=== PATIENT | female | born 1950 | race Caucasian/White ===

== ENCOUNTER 2018-12-08 10:56 | Emergency (ER) | payer MEDICARE ==
[~2018-12-08] VITALS: Ht 165.1 cm; Wt 92.9 kg
[~2018-12-08 10:56] MED LIST: ACET325T14 PO; ASPI81TA45 PO; ATOR-2 PO; CALC0.5C9 PO; DARB100V SQ; DOXY20TA5 PO; ERGO500017 PO; FURO80TA3 PO; HYDR-3240 PO; METO25TA35 PO/NG; NO HOME MEDS; ONDA4TAB7 PO; SULF1TAB24 PO
[2018-12-08 11:09] VITALS: BP 108/64
--- NOTE | 2018-12-08 12:06 | NUR ---
AMBULATORY FROM LOBBY TO ROOM WITH WALKER.
--- NOTE | 2018-12-08 13:06 | NUR ---
PRESSURE DSG WITH GAUZE AND TEGADERM APPLIED. PT INSTRUCTED IN REAPPLICATION AND TO RETURN SOONER IF GAUZE BECOMES SOAKED THRU.
== END 2018-12-08 13:08 | disposition home or self-care (01) ==
LOC: ED 11:56
DX: M79.81 Nontraumatic hematoma of soft tissue (principal); D68.32 Hemorrhagic disorder due to extrinsic circulating anticoagulants; I10 Essential (primary) hypertension
CPT/HCPCS: 99284

== ENCOUNTER 2019-02-15 09:39 | Day surgery (SDC) | payer MEDICARE ==
[~2019-02-15] VITALS: Ht 162.6 cm; Wt 96.9 kg
[2019-02-15 10:24] VITALS: BP 94/58
[2019-02-15] MEDS ORDERED: PROPOFOL 10 MG/ML, 20ML ONE (10:28)
[2019-02-15] MEDS ORDERED: ONDANSETRON 2MG/ML, 2ML ONE (10:28)
[2019-02-15] MEDS ORDERED: SUCCINYLCHOLINE 20 MG/ML, 10ML ONE (10:28)
[2019-02-15] MEDS ORDERED: CEFAZOLIN 1,000 MG ONE (10:28)
[2019-02-15] MEDS ORDERED: ATOR80TA PO (10:31)
[2019-02-15] MEDS ORDERED: ASPI-496 PO (10:31)
[2019-02-15] MEDS ORDERED: CINA90TA PO (10:31)
[2019-02-15] MEDS ORDERED: FURO80TA3 PO (10:31)
[2019-02-15] MEDS ORDERED: CALC0.5C9 PO (10:31)
[2019-02-15] MEDS ORDERED: ERGO500017 PO (10:33)
[2019-02-15] MEDS ORDERED: HEPARIN 1,000 UNITS/ML, 10ML ONE (11:37)
[2019-02-15] MEDS ORDERED: MIDAZOLAM 1 MG/ML, 2ML ONE (12:35)
[2019-02-15] MEDS ORDERED: FENTANYL PF 100 MCG/2ML ONE ×2 (12:42→13:34)
[2019-02-15] MEDS ORDERED: FENTANYL PF 100 MCG/2ML IV PRN (13:30)
[2019-02-15] MEDS ORDERED: PROMETHAZINE 25 MG/ML, 1ML IV PRN (13:30)
[2019-02-15] MEDS ORDERED: LABETALOL 5MG/ML, 20ML IV PRN (13:30)
[2019-02-15] MEDS ORDERED: MEPERIDINE/PF 25MG/0.5ML IVPush PRN (13:30)
[2019-02-15] MEDS ORDERED: hydrALAzine 20 MG/ML, 1ML IV PRN (13:30)
[2019-02-15] MEDS ORDERED: OXYcodone 5 MG/5 ML ORAL.SOL UDC PO PRN (13:30)
[2019-02-15] MEDS ORDERED: ONDANSETRON 2MG/ML, 2ML IVPush PRN (13:30)
[2019-02-15] MEDS ORDERED: METOCLOPRAMIDE 5 MG/ML, 2ML IV PRN (13:30)
[2019-02-15] MEDS ORDERED: KETOROLAC 30 MG/1 ML IV PRN (13:30)
[2019-02-15] MEDS ORDERED: HYDROmorphone 1 MG/ML, 1ML AMP IV PRN (13:30)
[2019-02-15] MEDS ORDERED: ALBUTEROL SULFATE 2.5 MG/3 ML NPPB PRN (13:30)
[2019-02-15] MEDS ORDERED: OXYcodone 5 MG/5 ML ORAL.SOL UDC ONE (13:34)
== END 2019-02-15 16:00 | disposition home or self-care (01) ==
LOC: OUT 09:39
PROVIDERS: ATTEND Surgery Vascular Surgery
DX: N19 Unspecified kidney failure (principal); I25.10 Atherosclerotic heart disease of native coronary artery without angina pectoris; Z95.1 Presence of aortocoronary bypass graft
CPT/HCPCS: 36415; 36821; 80047; 93005; J0330; J0690; J1644; J2250; J2405; J2704; J3010

== ENCOUNTER 2019-05-15 13:30 | Emergency (ER) | payer MEDICARE ==
[~2019-05-15] VITALS: Ht 162.6 cm; Wt 99.0 kg
[~2019-05-15 13:30] MED LIST changes: +ASPI-496 PO; +ATOR80TA PO; +CINA90TA PO
[2019-05-15] MEDS ORDERED: SODIUM CHLORIDE FLUSH 10ML SYR IVF ONE (14:00)
[2019-05-15] MEDS ORDERED: ONDANSETRON 2MG/ML, 2ML IVPush ONE (14:00)
[2019-05-15] MEDS ORDERED: HYDROmorphone 2 MG/ML, 1ML IVPush PRN (14:00)
--- NOTE | 2019-05-15 14:03 | NUR ---
THIS IS A 68 Y/O FEMALE WITH LOWER LEFT ABD PAIN X 2 DAYS. PT ARRIVES TO THED ED NOT FEELING WELL AFTER DIALYSIS TODAY. PT REPORTS NORMAL FATIGUE BUT HER PAIN REMAINS CONSTANT. PT REPROTS NO OTHER ABNORMALITY AND OTHER THAN FATIGUE IS IN GOOD SPIRITS AND VERY PLEASANT. PT HAD PIV AND GIVEN BLANKET AND PILLOW FOR COMFORT. NO BP SIGN IN ROOM. PT HAS FISTUAL AND SMITH BROVIAC. PT CONNECTED TO ALL MONITORS AND CALL LIGHT IN REACH. AWAITING FURTHER ORDERS.
[2019-05-15 14:11] LABS: BASOPHILS # (AUTO) 0.02 x10^3/uL (0-0.1); BASOPHILS % (AUTO) 0 % (0-1); EOSINOPHILS # (AUTO) 0.09 x10^3/uL (0-0.4); EOSINOPHILS % (AUTO) 1 % (1-7); LYMPHOCYTES # (AUTO) 1.07 x10^3/uL (1-3.4); LYMPHOCYTES % (AUTO) 14 % (22-44); MD NO; MEAN CORPUSCULAR HEMOGLOBIN 32.3 pg (27.0-34.8); MEAN CORPUSCULAR HGB CONC 32.7 g/dL (32.4-35.8); MEAN CORPUSCULAR VOLUME 98.7 fL (80-100); MEAN PLATELET VOLUME 6.4 fL (7.4-10.4); MONOCYTES # (AUTO) 0.63 x10^3/uL (0.2-0.8); MONOCYTES % (AUTO) 8 % (2-9); NEUTROPHILS % (AUTO) 76 % (42-75); PLATELET COUNT 211 x10^3/uL (130-400); RED BLOOD COUNT 3.24 x10^6/uL (3.82-5.3); RED CELL DISTRIBUTION WIDTH 21.4 % (9.6-15.2)
[2019-05-15 14:16] LABS: ALANINE AMINOTRANSFERASE 17 U/L (12-78); ALBUMIN 3.5 g/dL (3.4-5.0); ANION GAP 8 mmol/L (5-15); CALCIUM 9.3 mg/dL (8.5-10.1); CHLORIDE 95 mmol/L (98-107)
--- NOTE | 2019-05-15 14:17 | NUR ---
PT AT THIS TIME DOES NOT WANT ANY MEDICATIONS FOR HER PAIN AT THIS TIME.
[2019-05-15 14:19] LABS: ALKALINE PHOSPHATASE 130 U/L (45-117); BILIRUBIN,TOTAL 0.9 mg/dL (0.2-1.0); CREATININE 3.97 mg/dL (0.55-1.02); TOTAL PROTEIN 8.7 g/dL (6.4-8.2)
[2019-05-15] MEDS ORDERED: OMNIPAQUE 350 MG/ML, 100ML BOTTLE ONE (14:52)
--- NOTE | 2019-05-15 14:58 | NUR ---
PT BACK FROM CT.
--- NOTE | 2019-05-15 15:31 | NUR ---
CHART UP FOR RECHECK, INFORMED OF CT FINDINGS.
[2019-05-15] MEDS ORDERED: LIDOCAINE-MPF 1%, 5ML ONE (15:35)
[2019-05-15] MEDS ORDERED: LIDOCAINE 2%, 20ML SQ ONE (16:00)
[2019-05-15] MEDS ORDERED: CEFTRIAXONE PMX 1GM/50ML 50 ML IVPB ONE (16:00)
[2019-05-15] MEDS ORDERED: CEFTRIAXONE PMX 1GM/50ML 50 ML ONE (16:20)
[2019-05-15 16:28] VITALS: BP 104/62
--- NOTE | 2019-05-15 16:29 | NUR ---
MD AT THIS TIME WOULD LIKE TO NOT GET BLOOD CULTURES PRIOR TO ABX TREATMENT.
--- NOTE | 2019-05-15 16:59 | NUR ---
PT HAD HEMATOMA IN LOWER LEFT ABD DRAINED, THEN PACKED WITH 1/4 INCH GAUZE. PT HAD GAUZE AND ABD PAD APPLIED AND GIVEN INSTURCTIOSN TO COME BACK IN TWO DAYS FOR REPACKING. PT VERBALIZED UNDERSTANDTING. PT WOUND CULTURE COLLECTED WELL.
--- NOTE | 2019-05-15 17:10 | NUR ---
Patient/Caregiver given discharge instructions and they have confirmed that they understand the instructions. Patient ambulatory with steady gait.
== END 2019-05-15 17:36 | disposition home or self-care (01) ==
LOC: ED 14:57
DX: L02.211 Cutaneous abscess of abdominal wall (principal); I10 Essential (primary) hypertension; N28.9 Disorder of kidney and ureter, unspecified; E66.9 Obesity, unspecified; Z68.37 Body mass index [BMI] 37.0-37.9, adult; Z98.890 Other specified postprocedural states
CPT/HCPCS: 10060; 36415; 74177; 80053; 83605; 83690; 85025; 87070; 87205; 99284; Q9967

== ENCOUNTER → 2020-03-21 | Outpatient (CLI) | payer MEDICARE | END | disposition home or self-care (01) | LOC: CFH 12:53 | PROVIDERS: ATTEND Nurse Practitioner | DX: N63.20 Unspecified lump in the left breast, unspecified quadrant (principal); R92.2 Inconclusive mammogram | CPT/HCPCS: 76642; 77066; G0279 ==

== ENCOUNTER → 2020-04-19 | Outpatient (CLI) | payer MEDICARE | END | disposition home or self-care (01) | LOC: CVU 12:34 | PROVIDERS: ATTEND Internal Medicine Cardiovascular Disease | DX: I08.8 Other rheumatic multiple valve diseases (principal); I65.23 Occlusion and stenosis of bilateral carotid arteries; I10 Essential (primary) hypertension | CPT/HCPCS: 93306; 93356; 93880 ==

== ENCOUNTER 2020-04-25 12:21 | Emergency (ER) | payer MEDICARE ==
[~2020-04-25] VITALS: Ht 162.6 cm; Wt 105.4 kg
[2020-04-25] MEDS ORDERED: IRON15TA3 PO (12:44)
--- NOTE | 2020-04-25 12:54 | NUR ---
BREAK RN: THIS IS A 69 YO FEMALE WHO PRESENTS TO THE ER C/O RUQ TO MID ABD PAIN STARTING THIS MORNING AND GETTING WORSE THROUGHOUT THE DAY. PT DENIES N/V/D. PT AO X 4. SKIN PWD. RESP EVEN AND UNLABORED. PT WAS AT DIALYSIS TODAY BUT LEFT [facility] THROUGH D/T PAIN. PT HAS DIALSYSIS //FRI AND IS COMPLIANT. LEFT UPPER ARM AV FISTULA NOTED WITH GOOD THRILL/BRUIT. PT ON CONT BP AND O2 MONITORS. PT AWARE WE ARE WAITING FOR ERMD EVAL. CALL LIGHT WITHIN REACH.
[2020-04-25] MEDS ORDERED: ONDANSETRON 2MG/ML, 2ML ONE (13:08)
[2020-04-25] MEDS ORDERED: MORPHINE SULFATE 4 MG/ML, 1ML ONE (13:08)
[2020-04-25] MEDS: MORPHINE SULFATE 4 MG/ML, 1ML IVPush PRN ×2 (13:11→14:36)
--- NOTE | 2020-04-25 13:12 | NUR ---
RECEIVED REPORT FROM LUKE LENZ. PIV INITIATED AND PT MEDICATED PER JAN.
[2020-04-25] MEDS ORDERED: SODIUM CHLORIDE FLUSH 10ML SYR IVF ONE (13:30)
[2020-04-25] MEDS ORDERED: ONDANSETRON 2MG/ML, 2ML IVPush ONE (13:30)
[2020-04-25 14:20] LABS: MEAN CORPUSCULAR HEMOGLOBIN 31.2 pg (27.0-34.8); MEAN CORPUSCULAR HGB CONC 32.9 g/dL (32.4-35.8); MEAN CORPUSCULAR VOLUME 94.7 fL (80-100); MEAN PLATELET VOLUME 6.1 fL (7.4-10.4); PLATELET COUNT 189 x10^3/uL (130-400); RED BLOOD COUNT 3.05 x10^6/uL (3.82-5.3); RED CELL DISTRIBUTION WIDTH 22.7 % (9.6-15.2)
--- NOTE | 2020-04-25 14:22 | NUR ---
PT RESTING ON GURNEY. NADN. JIMENEZ.
[2020-04-25 14:27] LABS: INTERNATIONAL NORMALIZED RATIO 0.98 (0.93-1.1); PROTHROMBIN TIME 10.4 Seconds (9.6-11.5)
[2020-04-25 14:28] LABS: ALBUMIN 3.1 g/dL (3.4-5.0); ANION GAP 10 mmol/L (5-15); CALCIUM 9.6 mg/dL (8.5-10.1); CHLORIDE 96 mmol/L (98-107)
[2020-04-25 14:32] LABS: ALANINE AMINOTRANSFERASE 20 U/L (12-78); ALKALINE PHOSPHATASE 95 U/L (45-117); BILIRUBIN,TOTAL 0.5 mg/dL (0.2-1.0); CREATININE 6.48 mg/dL (0.55-1.02); TOTAL PROTEIN 8.2 g/dL (6.4-8.2)
--- NOTE | 2020-04-25 14:54 | NUR ---
US AT BEDSIDE.
[2020-04-25 15:19] LABS: ANISOCYTOSIS 2+; BASOPHILS # (AUTO) 0.02 x10^3/uL (0-0.1); BASOPHILS % (AUTO) 0 % (0-1); EOSINOPHILS # (AUTO) 0.05 x10^3/uL (0-0.4); EOSINOPHILS % (AUTO) 1 % (1-7); LYMPHOCYTES # (AUTO) 0.68 x10^3/uL (1-3.4); LYMPHOCYTES % (AUTO) 10 % (22-44); MD MORPH REVIEW ONLY; MONOCYTES # (AUTO) 0.45 x10^3/uL (0.2-0.8); MONOCYTES % (AUTO) 7 % (2-9); NEUTROPHILS # (AUTO) 5.66 x10^3/uL (1.8-6.8); NEUTROPHILS % (AUTO) 83 % (42-75); POLYCHROMASIA 1+
[2020-04-25 15:20] LABS: <PLATELET ESTIMATE> ADEQUATE; <PLT MORPHOLOGY> NORMAL PLT MORPH; OVALOCYTES 1+
--- NOTE | 2020-04-25 15:26 | NUR ---
PT CHART REVIEWED AND PLACED FOR RECHECK.
[2020-04-25 16:20] VITALS: BP 117/43
== END 2020-04-25 16:39 | disposition home or self-care (01) ==
LOC: ED 13:20
DX: K80.20 Calculus of gallbladder without cholecystitis without obstruction (principal); R10.11 Right upper quadrant pain; I10 Essential (primary) hypertension; R94.31 Abnormal electrocardiogram [ECG] [EKG]
CPT/HCPCS: 36415; 76700; 80053; 83690; 85025; 85610; 85730; 93005; 96374; 96375; 96376; 99285; J2270; J2405

== ENCOUNTER 2020-05-02 11:56 | Outpatient (CLI) | payer MEDICARE ==
[~2020-05-02 11:56] MED LIST changes: +IRON15TA3 PO
== END 2020-05-02 23:59 | disposition home or self-care (01) ==
LOC: CFH 11:56
PROVIDERS: ATTEND Nurse Practitioner
DX: N63.22 Unspecified lump in the left breast, upper inner quadrant (principal)
CPT/HCPCS: 76642; 77065; G0279

== ENCOUNTER 2020-06-12 10:06 | Outpatient (CLI) | payer MEDICARE ==
[2020-06-12] MEDS ORDERED: SEVE800T7 PO (11:29)
[2020-06-12] MEDS ORDERED: IRON18TA PO (11:29)
[2020-06-12] MEDS ORDERED: CINA30TA2 PO (11:29)
== END 2020-06-12 23:59 | disposition home or self-care (01) ==
LOC: STAR 10:06
PROVIDERS: ATTEND Surgery
DX: Z02.9 Encounter for administrative examinations, unspecified (principal)

== ENCOUNTER 2020-06-15 09:10 | Observation (INO) | payer MEDICARE ==
[~2020-06-15] VITALS: Ht 162.6 cm; Wt 107.0 kg
[~2020-06-15 09:10] MED LIST changes: +BUPIVACAINE/EPI 0.5% 1:200K ONE; +CINA30TA2 PO; +INDOCYANINE GREEN 25 MG VIAL ONE; +IRON18TA PO; +SEVE800T7 PO
[2020-06-15] MEDS: SODIUM CHLORIDE 0.9% 1,000 ML IV SCH ×3 (09:55→19:54)
[2020-06-15] MEDS ORDERED: LIDOCAINE-MPF 1%, 2ML INFIL ONE (10:00)
[2020-06-15] MEDS ORDERED: CHLORHEXIDINE 15 ML UDC MM ONE (10:00)
[2020-06-15] MEDS ORDERED: INDOCYANINE GREEN 25 MG VIAL IVPush ONE (10:00)
[2020-06-15] MEDS ORDERED: PROPOFOL 10 MG/ML, 20ML ONE (10:05)
[2020-06-15] MEDS ORDERED: GLYCOPYRROLATE 0.2MG/1ML, 5ML ONE (10:05)
[2020-06-15] MEDS ORDERED: NEOSTIGMINE 1 MG/ML, 10ML ONE (10:05)
[2020-06-15] MEDS ORDERED: FENTANYL PF 100 MCG/2ML ONE ×2 (10:05→14:09)
[2020-06-15] MEDS ORDERED: CEFAZOLIN 1,000 MG ONE (10:05)
[2020-06-15] MEDS ORDERED: MIDAZOLAM 1 MG/ML, 2ML ONE (10:05)
[2020-06-15] MEDS ORDERED: SUCCINYLCHOLINE 20 MG/ML, 10ML ONE (10:05)
[2020-06-15] MEDS ORDERED: DEXAMETHASONE 4 MG/ML, 1ML ONE (10:05)
[2020-06-15] MEDS ORDERED: ROCURONIUM 10MG/ML,5ML ONE (10:05)
[2020-06-15] MEDS ORDERED: ONDANSETRON 2MG/ML, 2ML ONE (10:05)
[2020-06-15 10:13] LABS: ALANINE AMINOTRANSFERASE 24 U/L (12-78); ALBUMIN 3.4 g/dL (3.4-5.0); ANION GAP 8 mmol/L (5-15); CALCIUM 9.8 mg/dL (8.5-10.1); CHLORIDE 100 mmol/L (98-107); CREATININE 3.82 mg/dL (0.55-1.02)
[2020-06-15 10:15] LABS: ALKALINE PHOSPHATASE 109 U/L (45-117); BILIRUBIN,TOTAL 0.6 mg/dL (0.2-1.0); TOTAL PROTEIN 8.2 g/dL (6.4-8.2)
[2020-06-15] MEDS ORDERED: HYDROmorphone 1 MG/ML, 1ML INJ IVPush PRN (10:30)
[2020-06-15] MEDS ORDERED: PROMETHAZINE 25 MG/ML, 1ML IVPush PRN (10:30)
[2020-06-15] MEDS ORDERED: MEPERIDINE/PF 25MG/0.5ML IVPush PRN (10:30)
[2020-06-15] MEDS ORDERED: PHENYLEPHRINE 10 MG/ML ONE (12:52)
[2020-06-15] MEDS: FENTANYL PF 100 MCG/2ML IV PRN ×4 (14:11→19:54)
[2020-06-15] MEDS ORDERED: OXYcodone 5 MG/5 ML ORAL.SOL UDC ONE (14:28)
[2020-06-15] MEDS: OXYcodone 5 MG/5 ML ORAL.SOL UDC PO PRN ×3 (14:30→21:40)
[2020-06-15] MEDS ORDERED: HYDROmorphone 1 MG/ML, 1ML INJ ONE (14:44)
[2020-06-15] MEDS ORDERED: ONDANSETRON 2MG/ML, 2ML IVPush PRN (19:30)
[2020-06-15] MEDS ORDERED: OXYcodone 5 MG/5 ML ORAL.SOL UDC PO PRN (19:30)
[2020-06-15] MEDS ORDERED: HYDROmorphone 2 MG/ML, 1ML IV PRN (19:30)
[2020-06-15] MEDS ORDERED: DIPHENHYDRAMINE 50 MG/ML, 1ML IVPush PRN (19:30)
[2020-06-15] MEDS ORDERED: KETOROLAC 30 MG/1 ML IV PRN (19:30)
[2020-06-15 20:23] VITALS: BP 106/65
[2020-06-15 21:00] VITALS: BP 106/65
[2020-06-15] MEDS ORDERED: ATORVASTATIN 80 MG TABLET PO SCH (21:00)
[2020-06-15] MEDS: FUROSEMIDE 80 MG TABLET PO SCH (21:00)
[2020-06-16 00:30] VITALS: BP 100/60
[2020-06-16 03:45] VITALS: BP 96/60
[2020-06-16] MEDS: OXYcodone 5 MG/5 ML ORAL.SOL UDC PO PRN (04:28)
[2020-06-16] MEDS ORDERED: ASPIRIN 81 MG TABLET EC PO SCH (06:00)
[2020-06-16 07:35] VITALS: BP 105/60
[2020-06-16] MEDS ORDERED: SEVELAMER CARBONATE 800MG TAB PO SCH (08:00)
[2020-06-16] MEDS: FUROSEMIDE 80 MG TABLET PO SCH (08:40)
[2020-06-16] MEDS ORDERED: FERROUS SULFATE 325 MG TABLET PO SCH (09:00)
[2020-06-16] MEDS ORDERED: CINACALCET 30 MG TABLET PO SCH (09:00)
[2020-06-18] MEDS ORDERED: ERGOCALCIFEROL 50,000 UNIT CAPSULE PO SCH (09:00)
== END 2020-06-16 10:25 | disposition home or self-care (01) ==
LOC: OUT 09:10 → 4NE 19:17 → DCLOUNGE 06-16 10:17
PROVIDERS: ADMIT Surgery; ATTEND Surgery
DX: Z03.818 Encounter for observation for suspected exposure to other biological agents ruled out (principal); K80.10 Calculus of gallbladder with chronic cholecystitis without obstruction; K76.0 Fatty (change of) liver, not elsewhere classified; K43.0 Incisional hernia with obstruction, without gangrene; I25.10 Atherosclerotic heart disease of native coronary artery without angina pectoris; E66.01 Morbid (severe) obesity due to excess calories; N18.6 End stage renal disease; Z79.82 Long term (current) use of aspirin; Z79.899 Other long term (current) drug therapy; Z87.891 Personal history of nicotine dependence; Z95.1 Presence of aortocoronary bypass graft; Z99.2 Dependence on renal dialysis; Z85.828 Personal history of other malignant neoplasm of skin
CPT/HCPCS: 36415; 47563; 80053; 87635; 88304; G0378; J0330; J0690; J1100; J1170; J2250; J2370; J2405; J2704; J2710; J3010; J7030

== ENCOUNTER 2020-09-06 13:27 | Inpatient (IN) | payer MEDICARE ==
[~2020-09-06] VITALS: Ht 162.6 cm; Wt 104.0 kg
[~2020-09-06 13:27] MED LIST changes: -BUPIVACAINE/EPI 0.5% 1:200K ONE; +BUPIVACAINE/PF 0.5% ONE; -INDOCYANINE GREEN 25 MG VIAL ONE
[2020-09-06] MEDS ORDERED: CHLORHEXIDINE 15 ML UDC ONE (13:49)
[2020-09-06 14:12] VITALS: BP 123/67
[2020-09-06] MEDS ORDERED: CHOL100011 PO (14:12)
[2020-09-06] MEDS ORDERED: BIOT10TA PO (14:12)
[2020-09-06 14:27] LABS: BASOPHILS % (AUTO) 1 % (0-1); EOSINOPHILS % (AUTO) 2 % (1-7); LYMPHOCYTES % (AUTO) 17 % (22-44); MEAN CORPUSCULAR HEMOGLOBIN 30.4 pg (27.0-34.8); MEAN CORPUSCULAR HGB CONC 32.6 g/dL (32.4-35.8); MEAN PLATELET VOLUME 6.7 fL (7.4-10.4); MONOCYTES % (AUTO) 10 % (2-9); NEUTROPHILS % (AUTO) 72 % (42-75); PLATELET COUNT 146 x10^3/uL (130-400); RED BLOOD COUNT 3.34 x10^6/uL (3.82-5.3); RED CELL DISTRIBUTION WIDTH 20.1 % (9.6-15.2)
[2020-09-06] MEDS ORDERED: CHLORHEXIDINE 15 ML UDC MM ONE (14:30)
[2020-09-06] MEDS ORDERED: PLEASE ENTER HEIGHT AND WEIGHT MC SCH (14:30)
[2020-09-06] MEDS ORDERED: SODIUM CHLORIDE 0.9% 1,000 ML IV SCH (14:30)
[2020-09-06 14:38] LABS: CHLORIDE 99 mmol/L (98-107)
[2020-09-06 14:48] LABS: ALANINE AMINOTRANSFERASE 19 U/L (12-78); ALBUMIN 3.5 g/dL (3.4-5.0); ALKALINE PHOSPHATASE 104 U/L (45-117); ANION GAP 10 mmol/L (5-15); BILIRUBIN,TOTAL 0.7 mg/dL (0.2-1.0); CREATININE 6.95 mg/dL (0.55-1.02); TOTAL PROTEIN 8.4 g/dL (6.4-8.2)
[2020-09-06] MEDS ORDERED: FENTANYL PF 250 MCG/5ML ONE (14:52)
[2020-09-06 14:54] LABS: MD NO
[2020-09-06 15:08] LABS: INTERNATIONAL NORMALIZED RATIO 0.95 (0.93-1.1); PROTHROMBIN TIME 10.1 Seconds (9.6-11.5)
[2020-09-06] MEDS ORDERED: SUCCINYLCHOLINE 20 MG/ML, 10ML ONE (15:22)
[2020-09-06] MEDS ORDERED: PROPOFOL 10 MG/ML, 20ML ONE (15:22)
[2020-09-06] MEDS ORDERED: ROCURONIUM 10MG/ML,5ML ONE (15:22)
[2020-09-06] MEDS ORDERED: HYDROmorphone 1 MG/ML, 1ML INJ IVPush PRN (16:00)
[2020-09-06] MEDS ORDERED: ACETAMINOPHEN 325 MG TABLET PO PRN (16:00)
[2020-09-06] MEDS ORDERED: hydrALAzine 20 MG/ML, 1ML IV PRN (16:00)
[2020-09-06] MEDS ORDERED: PROMETHAZINE 25 MG/ML, 1ML IVPush PRN (16:00)
[2020-09-06] MEDS ORDERED: LABETALOL 5MG/ML, 20ML IV PRN (16:00)
[2020-09-06] MEDS ORDERED: OXYcodone 5 MG/5 ML ORAL.SOL UDC PO PRN (16:00)
[2020-09-06] MEDS ORDERED: ONDANSETRON 2MG/ML, 2ML IVPush PRN ×2 (16:00→20:30)
[2020-09-06] MEDS ORDERED: CEFAZOLIN 1,000 MG ONE (16:02)
[2020-09-06] MEDS ORDERED: METOCLOPRAMIDE 5 MG/ML, 2ML ONE (16:08)
[2020-09-06] MEDS ORDERED: ONDANSETRON 2MG/ML, 2ML ONE (17:17)
[2020-09-06] MEDS ORDERED: FENTANYL PF 100 MCG/2ML ONE (17:43)
[2020-09-06] MEDS ORDERED: OXYcodone 5 MG/5 ML ORAL.SOL UDC ONE (17:43)
[2020-09-06] MEDS ORDERED: ACETAMINOPHEN 650 MG/20.3 ML UDC ONE (17:44)
[2020-09-06] MEDS ORDERED: ACETAMINOPHEN 325 MG TABLET ONE (17:44)
[2020-09-06] MEDS: FENTANYL PF 100 MCG/2ML IV PRN ×3 (17:45→18:10)
[2020-09-06] MEDS ORDERED: HYDROmorphone 1 MG/ML, 1ML INJ ONE (18:23)
[2020-09-06] MEDS ORDERED: HYDROmorphone 2 MG/ML, 1ML IV PRN (20:30)
[2020-09-06 22:19] VITALS: BP 100/62
[2020-09-06] MEDS: ATORVASTATIN 80 MG TABLET PO SCH (22:32)
[2020-09-06] MEDS: OXYcodone 5 MG/5 ML ORAL.SOL UDC PO PRN ×2 (22:33→22:34)
[2020-09-07 00:16] VITALS: BP 106/65
[2020-09-07] MEDS: OXYcodone 5 MG/5 ML ORAL.SOL UDC PO PRN ×4 (02:40→20:44)
[2020-09-07 04:24] VITALS: BP 112/67
[2020-09-07 05:29] LABS: ANION GAP 10 mmol/L (5-15); CALCIUM 9.3 mg/dL (8.5-10.1); CHLORIDE 103 mmol/L (98-107)
[2020-09-07 05:30] LABS: CREATININE 8.34 mg/dL (0.55-1.02)
[2020-09-07] MEDS: ASPIRIN 81 MG TABLET EC PO SCH (06:28)
[2020-09-07 07:16] VITALS: BP 111/58
[2020-09-07] MEDS: CINACALCET 30 MG TABLET PO SCH (09:29)
[2020-09-07] MEDS: SEVELAMER CARBONATE 800MG TAB PO SCH ×2 (09:30→17:00)
[2020-09-07] MEDS: FERROUS SULFATE 325 MG TABLET PO SCH (09:30)
[2020-09-07] MEDS: FUROSEMIDE 80 MG TABLET PO SCH (09:30)
[2020-09-07] MEDS: CHOLECALCIFEROL 1,000 UNIT TABLET PO SCH (09:31)
[2020-09-07 14:06] VITALS: BP 103/64
[2020-09-07 20:00] VITALS: BP 101/62
[2020-09-07] MEDS: ATORVASTATIN 80 MG TABLET PO SCH (20:44)
[2020-09-08 00:53] VITALS: BP 102/42
[2020-09-08] MEDS: ASPIRIN 81 MG TABLET EC PO SCH (06:00)
[2020-09-08 06:47] LABS: ANION GAP 12 mmol/L (5-15); CALCIUM 9.7 mg/dL (8.5-10.1); CHLORIDE 100 mmol/L (98-107)
[2020-09-08 07:54] VITALS: BP 107/65
[2020-09-08] MEDS: SEVELAMER CARBONATE 800MG TAB PO SCH ×3 (08:27→17:11)
[2020-09-08] MEDS: FUROSEMIDE 80 MG TABLET PO SCH (08:28)
[2020-09-08] MEDS: CINACALCET 30 MG TABLET PO SCH (08:28)
[2020-09-08] MEDS: FERROUS SULFATE 325 MG TABLET PO SCH (08:32)
[2020-09-08] MEDS: CHOLECALCIFEROL 1,000 UNIT TABLET PO SCH (08:33)
[2020-09-08 14:28] VITALS: BP 96/58
[2020-09-08] MEDS: OXYcodone 5 MG/5 ML ORAL.SOL UDC PO PRN (21:10)
[2020-09-08] MEDS: ATORVASTATIN 80 MG TABLET PO SCH (21:10)
[2020-09-08 21:15] VITALS: BP 96/50
[2020-09-09 01:46] VITALS: BP 84/40
[2020-09-09] MEDS: ASPIRIN 81 MG TABLET EC PO SCH (06:40)
[2020-09-09 07:18] VITALS: BP 93/59
[2020-09-09] MEDS: FERROUS SULFATE 325 MG TABLET PO SCH (08:26)
[2020-09-09] MEDS: SEVELAMER CARBONATE 800MG TAB PO SCH ×2 (08:26→16:45)
[2020-09-09] MEDS: FUROSEMIDE 80 MG TABLET PO SCH (08:27)
[2020-09-09] MEDS: CINACALCET 30 MG TABLET PO SCH (08:27)
[2020-09-09] MEDS: CHOLECALCIFEROL 1,000 UNIT TABLET PO SCH (08:27)
[2020-09-09] MEDS: OXYcodone 5 MG/5 ML ORAL.SOL UDC PO PRN ×2 (11:07→16:45)
[2020-09-09 14:11] VITALS: BP 104/61
[2020-09-09 19:40] VITALS: BP 100/63
[2020-09-09 20:14] LABS: TROPONIN I 0.164 ng/mL (0.000-0.045)
[2020-09-09] MEDS ORDERED: ENOXAPARIN 30 MG/0.3 ML SQ SCH (21:30)
[2020-09-09] MEDS: ATORVASTATIN 80 MG TABLET PO SCH (21:54)
[2020-09-10 02:04] LABS: BASOPHILS % (AUTO) 0 % (0-1); EOSINOPHILS % (AUTO) 2 % (1-7); LYMPHOCYTES % (AUTO) 9 % (22-44); MEAN CORPUSCULAR HEMOGLOBIN 30.6 pg (27.0-34.8); MEAN CORPUSCULAR HGB CONC 32.5 g/dL (32.4-35.8); MEAN PLATELET VOLUME 6.1 fL (7.4-10.4); MONOCYTES % (AUTO) 8 % (2-9); NEUTROPHILS % (AUTO) 81 % (42-75); PLATELET COUNT 187 x10^3/uL (130-400); RED BLOOD COUNT 2.47 x10^6/uL (3.82-5.3); RED CELL DISTRIBUTION WIDTH 20.3 % (9.6-15.2)
[2020-09-10 02:15] LABS: ALANINE AMINOTRANSFERASE 9 U/L (12-78); ALBUMIN 2.8 g/dL (3.4-5.0); ANION GAP 5 mmol/L (5-15); CHLORIDE 103 mmol/L (98-107); CREATININE 3.76 mg/dL (0.55-1.02)
[2020-09-10 02:17] LABS: ALKALINE PHOSPHATASE 110 U/L (45-117); BILIRUBIN,TOTAL 0.9 mg/dL (0.2-1.0); TOTAL PROTEIN 8.1 g/dL (6.4-8.2)
[2020-09-10 02:18] LABS: TROPONIN I 0.164 ng/mL (0.000-0.045)
[2020-09-10 02:22] LABS: MD NO
[2020-09-10 03:50] VITALS: BP 100/60
[2020-09-10] MEDS: ASPIRIN 81 MG TABLET EC PO SCH (06:00)
[2020-09-10 07:11] VITALS: BP 92/55
[2020-09-10] MEDS: CHOLECALCIFEROL 1,000 UNIT TABLET PO SCH (08:10)
[2020-09-10] MEDS: SEVELAMER CARBONATE 800MG TAB PO SCH (08:10)
[2020-09-10] MEDS: FUROSEMIDE 80 MG TABLET PO SCH (08:10)
[2020-09-10] MEDS: FERROUS SULFATE 325 MG TABLET PO SCH (08:10)
[2020-09-10] MEDS: CINACALCET 30 MG TABLET PO SCH (08:10)
[2020-09-10] MEDS ORDERED: PANTOPRAZOLE 40 MG IV IVPush SCH (09:00)
[2020-09-11] MEDS ORDERED: PANTOPRAZOLE 40MG TABLET PO SCH (09:00)
== END 2020-09-10 12:12 | disposition home or self-care (01) | DRG 335 ==
LOC: OR 13:27 → 3WST 18:45 → OR 23:10 → OBSVTOIN 23:11 → 3WST 23:11 → DCLOUNGE 09-10 12:05
PROVIDERS: ADMIT Surgery; ATTEND Surgery
PROC: 0DNU4ZZ Release Omentum, Percutaneous Endoscopic Approach (ICD-10-PCS; 2020-09-06)
PROC: 8E0W4CZ Robotic Assisted Procedure of Trunk Region, Percutaneous Endoscopic Approach (ICD-10-PCS; 2020-09-06)
PROC: 0FT44ZZ Resection of Gallbladder, Percutaneous Endoscopic Approach (ICD-10-PCS; principal; 2020-09-06 15:30)
DX: K43.0 Incisional hernia with obstruction, without gangrene (principal); N18.6 End stage renal disease; N25.81 Secondary hyperparathyroidism of renal origin; K42.9 Umbilical hernia without obstruction or gangrene; D64.9 Anemia, unspecified; E66.01 Morbid (severe) obesity due to excess calories; K66.0 Peritoneal adhesions (postprocedural) (postinfection); I95.3 Hypotension of hemodialysis; R00.0 Tachycardia, unspecified; Z20.828 Contact with and (suspected) exposure to other viral communicable diseases; I25.10 Atherosclerotic heart disease of native coronary artery without angina pectoris; Z68.39 Body mass index [BMI] 39.0-39.9, adult; I25.2 Old myocardial infarction; Z95.1 Presence of aortocoronary bypass graft; Z99.2 Dependence on renal dialysis
CPT/HCPCS: 36415; 71046; 80048; 80053; 84484; 85025; 85610; 85730; 87635; 90935; 93005; G0378; J0690; J1170; J1650; J2405; J2704; J3010; C1781; C9113; J0330; J2765; J7030

== ENCOUNTER 2020-09-16 19:01 | Emergency (ER) | payer MEDICARE ==
[~2020-09-16] VITALS: Ht 165.1 cm; Wt 100.0 kg
[2020-09-16] VITALS (7 sets, daily range): BP systolic 84–107; BP diastolic 37–58
[~2020-09-16 19:01] MED LIST changes: +BIOT10TA PO; -BUPIVACAINE/PF 0.5% ONE; +CHOL100011 PO
[2020-09-16 19:25] LABS: BASOPHILS % (AUTO) 1 % (0-1); EOSINOPHILS % (AUTO) 1 % (1-7); LYMPHOCYTES % (AUTO) 14 % (22-44); MEAN CORPUSCULAR HEMOGLOBIN 29.7 pg (27.0-34.8); MEAN CORPUSCULAR HGB CONC 31.9 g/dL (32.4-35.8); MONOCYTES % (AUTO) 10 % (2-9); NEUTROPHILS % (AUTO) 75 % (42-75); PLATELET COUNT 168 x10^3/uL (130-400); RED BLOOD COUNT 2.42 x10^6/uL (3.82-5.3); RED CELL DISTRIBUTION WIDTH 19.7 % (9.6-15.2)
[2020-09-16] MEDS ORDERED: SODIUM CHLORIDE FLUSH 10ML SYR IVF ONE (19:30)
--- NOTE | 2020-09-16 19:36 | NUR ---
PT CAME IN CO OF WEAKNESS, DIZZY, AND SOB X 5 DAYS. SHE WAS DC FROM HOSPITAL 5 DAYS AGO FOR HERNIA OPERATION. INCISION SITES LOOK PINK AND DRY. EKG COMPLETE. PT RESTING IN GURNEY. LABS DRAWN
[2020-09-16 19:37] LABS: ALBUMIN 2.7 g/dL (3.4-5.0); ANION GAP 5 mmol/L (5-15); CALCIUM 8.9 mg/dL (8.5-10.1); CHLORIDE 99 mmol/L (98-107); CREATININE 3.44 mg/dL (0.55-1.02); MD NO
[2020-09-16 19:44] LABS: TROPONIN I 0.312 ng/mL (0.000-0.045)
--- NOTE | 2020-09-16 21:16 | NUR ---
BLOOD TRANSFUSING AT THIS TIME. PT TOLERATING WELL
--- NOTE | 2020-09-16 21:45 | NUR ---
1ST UNIT STILL INFUSING. PT TOLERATING WELL. SEE TRANSFUSIONS FOR VITALS
--- NOTE | 2020-09-16 22:16 | NUR ---
2nd unit PRBC STARTED, VSS. NO RXN NOTED. NO CP, NO SOB.
--- NOTE | 2020-09-16 22:27 | NUR ---
15 MIN TX VITALS NO RXN.
--- NOTE | 2020-09-16 22:39 | NUR ---
NO CHANGE IN ASSESSMENT. VS REMAIN STABLE.
== END 2020-09-16 23:58 | disposition home or self-care (01) ==
LOC: ED 20:17
DX: D62 Acute posthemorrhagic anemia (principal); R53.1 Weakness; R10.9 Unspecified abdominal pain; R06.02 Shortness of breath; R53.83 Other fatigue; I10 Essential (primary) hypertension; Z87.891 Personal history of nicotine dependence
CPT/HCPCS: 36415; 36430; 74022; 80048; 82040; 84484; 85025; 86850; 86900; 86923; 93005; 99285; P9016

== ENCOUNTER → 2021-02-07 | Outpatient (CLI) | payer MEDICARE ==
[~2021-02-07] MED LIST changes: +HYDR-1067 PO; -HYDR-3240 PO
== END | disposition home or self-care (01) ==
LOC: CFH 11:03
PROVIDERS: ATTEND Internal Medicine Cardiovascular Disease
DX: I08.0 Rheumatic disorders of both mitral and aortic valves (principal); I11.9 Hypertensive heart disease without heart failure; N19 Unspecified kidney failure; Z95.1 Presence of aortocoronary bypass graft
CPT/HCPCS: 93306

== ENCOUNTER → 2021-05-23 | Outpatient (CLI) | payer MEDICARE ==
[~2021-05-23] MED LIST changes: -HYDR-1067 PO; +HYDR-2214 PO; +SULF-23 PO; -SULF1TAB24 PO
== END | disposition home or self-care (01) ==
LOC: CFH 07:43
PROVIDERS: ATTEND Family Medicine
DX: Z12.31 Encounter for screening mammogram for malignant neoplasm of breast (principal)
CPT/HCPCS: 77063; 77067